=== PATIENT | female | born 1965 | race Caucasian/White ===

== ENCOUNTER → 2021-08-31 07:59 | Outpatient (CLI) | payer OTHER, SELFPAY ==
--- NOTE | 2021-08-31 | DI.MRI.S_ITS ---
PROCEDURE: MRFOOT LT WO CON INDICATIONS: Sprain of tarsometatarsal ligament of left foot, initial enc TECHNIQUE: Noncontrast sagittal T1 spin echo and T2 fast spin echo with fat saturation, long-axis T1 spin echo and T2 fast spin echo with fat saturation, short-axis T1 spin echo and T2 fast spin echo with fat saturation through the forefoot. COMPARISON: None. FINDINGS: Image quality: Excellent. Bones and joints: Osteoarthritic changes are noted throughout midfoot and forefoot joints. There is marrow edema involving medial and distal portion of navicular bone, distal calcaneus, proximal and medial portion of cuboid and lateral periphery of cuboid, proximal portion of middle and lateral cuneiforms. Finding likely represent changes secondary to osteoarthritis versus bony contusion. No discrete fracture line is seen. No suspicious intraosseous lesion. No metatarsal stress fractures. Soft tissues: The visualized plantar foot muscles demonstrate normal signal and bulk. Visualized flexor and extensor tendons appear intact, without tenosynovitis. The distal insertions of the peroneus brevis and longus tendons appear intact. The principal Lisfranc ligament appears intact. No soft tissue ganglion cysts or bursal fluid collections. Sagittal images demonstrate no evidence for plantar plate tears. IMPRESSION: 1. [id number] midfoot and forefoot joint osteoarthritis more prominent involving tarsal bones as described above. Mild edema involving multiple tarsal bones, and distal calcaneus concerning for changes related to osteoarthritis versus contusion. No fracture or dislocation. No suspicious intraosseous lesion. No evidence of osteonecrosis. 2. Visualized forefoot tendons are grossly intact. 3. Principal Lisfranc ligament appears grossly intact. No full-thickness ligament rupture. Dictated by: Severo Landeros M.D. on 08/31/2021 at 13:01 Approved by: Severo Landeros M.D. on 08/31/2021 at 13:16
== END ==
PROVIDERS: PCP Registered Nurse; Referring Provider Podiatrist; Visit Provider Podiatrist
DX: S93.622A Sprain of tarsometatarsal ligament of left foot, initial encounter (principal); M19.072 Primary osteoarthritis, left ankle and foot
CPT/HCPCS: 73718

== ENCOUNTER → 2021-12-19 16:36 | Outpatient (CLI) | payer OTHER, SELFPAY ==
--- NOTE | 2021-12-19 16:38 | DI.MRI.S_ITS ---
PROCEDURE: MR ANKLE LT WO CON INDICATIONS: Injury to Left ankle TECHNIQUE: Noncontrast sagittal T1 spin echo and T2 fast spin echo with fat saturation, axial proton density fast spin echo and T2 fast spin echo with fat saturation, coronal T1 spin echo and T2 fast spin echo with fat saturation through the ankle/hindfoot. COMPARISON: [facility], MR, MR FOOT LT WO CON, 08/31/2021, 8:26. FINDINGS: Image quality: Excellent. Bones and joints: There is an ununited fracture versus accessory ossification at the anterior process of the calcaneus with mild associated osseous edema. Subchondral edema is also seen at the navicular cuneiform articulations. Osseous edema within the posterior medial calcaneus has resolved, consistent with a healed contusion or nondisplaced fracture. No osteochondral lesion of the talar dome. Medial structures: The deep and superficial layers of the deltoid ligament appear intact. The spring ligament components are intact. The posterior tibialis, flexor digitorum longus, and flexor hallucis longus tendons are intact. The posterior tibial neurovascular bundle appears normal within the tarsal tunnel, without extrinsic mass effect. Lateral structures: The anterior talofibular ligament appears attenuated, consistent with a remote prior low-grade sprain. The calcaneofibular ligament and posterior talofibular ligament are intact. The anterior and posterior tibiofibular ligaments appear intact. There is peroneus brevis and longus tendinosis and tenosynovitis. Focal partial tearing of the peroneus longus tendon at the level of the distal fibular tip is also suspected. The sinus tarsi demonstrates normal fatty signal, without edema, fibrosis, or cyst formation. Anterior structures: The tibialis anterior, extensor hallucis longus, and extensor digitorum longus tendons appear intact. The dorsal talonavicular ligament appears intact. Posterior and plantar structures: Achilles tendon is intact. Mild thickening of the proximal plantar fascia without edema is consistent with chronic fasciitis. No abductor digiti quinti muscle atrophy to suggest Augustine neuropathy. IMPRESSION: 1. Ununited fracture of the anterior process of the calcaneus is seen with mild surrounding edema. 2. Decreased osseous edema within the cuboid, navicular, and cuneiforms is most likely secondary to resolving contusions or healed nondisplaced fractures. 3. Suspected focal partial tearing of the peroneus longus tendon at the level of the distal fibular tip superimposed on peroneus brevis and longus tendinosis and tenosynovitis. 4. Chronic low-grade sprain of the anterior talofibular ligament. 5. Mild chronic proximal plantar fasciitis. Approved by: Judson Donnelly M.D. on 12/20/2021 at 10:31
== END ==
PROVIDERS: PCP Registered Nurse; Referring Provider Podiatrist; Visit Provider Podiatrist
DX: S92.022K Displaced fracture of anterior process of left calcaneus, subsequent encounter for fracture with nonunion (principal); S93.492D Sprain of other ligament of left ankle, subsequent encounter; S99.922D Unspecified injury of left foot, subsequent encounter; M25.475 Effusion, left foot; M72.2 Plantar fascial fibromatosis; X58.XXXD Exposure to other specified factors, subsequent encounter
CPT/HCPCS: 73721

== ENCOUNTER → 2022-12-14 10:57 | Outpatient (CLI) | payer OTHER, SELFPAY ==
--- NOTE | 2022-12-14 | DI.MRI.S_ITS ---
PROCEDURE: MR ANKLE LT WO CON INDICATIONS: LEFT ANKLE PAIN TECHNIQUE: Noncontrast sagittal T1 spin echo and T2 fast spin echo with fat saturation, axial proton density fast spin echo and T2 fast spin echo with fat saturation, coronal T1 spin echo and T2 fast spin echo with fat saturation through the ankle/hindfoot. COMPARISON: [facility], MR, MR ANKLE LT WO CON, 12/19/2021, 17:13. FINDINGS: Image quality: Excellent. Bones and joints: Moderate osseous edema is seen within the anterior calcaneus, which has mildly increased in extent when compared to the MRI from 12/19/2021. The previously seen fracture of the anterior process appears less distinct, compatible with partial healing changes. Portions of the fracture line are still visualized. Focal subchondral cystic changes and edema are seen in the distal navicular. Moderate osseous edema is seen within the distal portion of the medial cuneiform questionable incomplete subchondral fracture line along the plantar aspect of the distal articular surface. No hindfoot coalitions. No osteochondral injuries of the talar dome. Medial structures: The deep and superficial layers of the deltoid ligament appear intact. The spring ligament components are intact. Mild distal posterior tibialis tenosynovitis. The flexor digitorum longus and flexor hallucis longus tendons are intact. The posterior tibial neurovascular bundle appears normal within the tarsal tunnel, without extrinsic mass effect. Lateral structures: Remote prior low-grade sprain of the anterior talofibular ligament. The calcaneofibular, and posterior talofibular ligaments appear intact. The anterior and posterior tibiofibular ligaments appear intact. Suspected focal partial tearing of the peroneus longus tendon again seen at the level of the distal fibular tip superimposed on mild to moderate peroneus brevis and longus tendinosis and mild tenosynovitis. The sinus tarsi demonstrates normal fatty signal. Anterior structures: The tibialis anterior, extensor hallucis longus, and extensor digitorum longus tendons appear intact. The dorsal talonavicular ligament appears intact. Posterior and plantar structures: Achilles tendon is intact. The proximal plantar fascia is mildly thickened. No abductor digiti quinti muscle atrophy to suggest Augustine neuropathy. IMPRESSION: 1. New moderate osseous edema within the distal medial cuneiform is suspicious for an osseous contusion, with a questionable incomplete subchondral fracture line at the distal articular surface. 2. Mild progressive healing changes of the previously seen anterior calcaneal process fracture. However, there appears to be increased osseous edema within the anterior calcaneus for when compared to the MRI from 12/19/2021. 3. Chronic focal partial tearing of the peroneus longus tendon again seen at the level of the distal fibular tip. Mild to moderate peroneus brevis and longus tendinosis and mild tenosynovitis. 4. Remote prior low-grade sprain of the anterior talofibular ligament. 5. Mild chronic proximal plantar fasciitis. Approved by: Judson Donnelly M.D. on 12/15/2022 at 9:37
== END ==
PROVIDERS: PCP Registered Nurse; Referring Provider Podiatrist; Visit Provider Podiatrist
DX: S99.922D Unspecified injury of left foot, subsequent encounter (principal); M25.472 Effusion, left ankle; S92.022D Displaced fracture of anterior process of left calcaneus, subsequent encounter for fracture with routine healing; S96.812A Strain of other specified muscles and tendons at ankle and foot level, left foot, initial encounter; M65.872 Other synovitis and tenosynovitis, left ankle and foot; S93.492A Sprain of other ligament of left ankle, initial encounter; M72.2 Plantar fascial fibromatosis
CPT/HCPCS: 73721